=== PATIENT | female | born 1985 | race Caucasian/White ===

== ENCOUNTER 2019-01-06 10:23 | Emergency (ER) | payer SELFPAY ==
[2019-01-06 10:29] VITALS: BMI 36.6
[2019-01-06 10:33] VITALS: RESP 18
--- NOTE | 2019-01-06 12:12 | C.PDOC ---
History Of Present Illness 33-year-old female presents to the ED for evaluation of right shoulder pain radiating to the right upper arm and hand which gradually developed over the past few days. 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 She denies known trauma/injury to the area, chest pain, shortness of breath, and deformity or weakness to the right arm. Time Seen by Provider: 01/06/19 10:43 Chief Complaint (Nursing): Upper Extremity Problem/Injury History Per: Patient History/Exam Limitations: no limitations Onset/Duration Of Symptoms: Gradual, Other (few days ) Current Symptoms Are (Timing): Still Present Quality: "Pain" Additional History Per: Patient Past Medical History Reviewed: Historical Data, Nursing Documentation, Vital Signs Vital Signs: Last Vital Signs Temp 98.1 F 01/06/19 10:29 Pulse 95 H 01/06/19 10:29 Resp 18 01/06/19 10:29 BP 120/79 01/06/19 10:29 Pulse Ox 99 01/06/19 10:29 - Medical History PMH: No Chronic Diseases Surgical History: No Surg Hx Family History: States: Unknown Family Hx - Social History Hx Alcohol Use: No Hx Substance Use: No - Immunization History Hx Tetanus Toxoid Vaccination: No Hx Influenza Vaccination: No Hx Pneumococcal Vaccination: No Review Of Systems Constitutional: Negative for: Fever, Chills, Weakness Cardiovascular: Negative for: Chest Pain Respiratory: Negative for: Shortness of Breath Musculoskeletal: Positive for: Shoulder Pain (right ), Arm Pain (right, upper ), Hand Pain (right) Skin: Negative for: Rash, Lesions, Jaundice, Bruising Neurological: Negative for: Weakness, Numbness Physical Exam - Physical Exam Appears: Well, Non-toxic, No Acute Distress Skin: Normal Color, Warm, No Rash, No Ecchymosis Head: Atraumatic, Normacephalic Neck: Trachea Midline, No Midline Cervical Tenderness, No Step Off Deformity, Supple, Other (Diffuse right lateral neck tenderness overlying trapezium muscle with palpable muscle spasm.) Cardiovascular: Rhythm Regular, No Murmur, No JVD Respiratory: No Decreased Breath Sounds, No Accessory Muscle Use, No Stridor, No Wheezing Extremity: Normal ROM (Mild discomfort to Right shoulder extension/abduction due to pain, no neurovascular deficits), Tenderness (tenderness over Right superior shoulder extend to Right upper back with palpable muscle spasm. No palpable deformity.), No Deformity, No Swelling Neurological/Psych: Oriented x3, Normal Speech, Normal Motor, Normal Sensation, Normal Reflexes ED Course And Treatment O2 Sat by Pulse Oximetry: 99 (on RA) Pulse Ox Interpretation: Normal - Other Rad Right shoulder X-Ray: Interpreted by Me, Viewed By Me Interpretation: (-) acute fx or dislocation Progress Note: Right shoulder XR ordered. Tramadol PO and Prednisone PO given. On re-eval, pt is afebrile, hemodynamicay stable. Non-toxic. RUE: mild tenderness over superior aspect Right shoulder. Mild discomofrt to Right shoulder extension due to pain. NO neurovascular deficits, no deformity, no neurovascular deficits. Imaging review and appears normal. Pt has clinical findings c/w Right shoulder strain/ cervical radiculopathy. Pt advised. ref. to F/u with PMD in2 -3 days for re-eavl. return if any new changes Disposition Counseled Patient/Family Regarding: Studies Performed, Diagnosis, Need For Followup, Rx Given - Disposition Referrals: [facility] [Outside] Disposition: HOME/ ROUTINE Disposition Time: 11:35 Condition: STABLE Additional Instructions: Light duty to Right arm, avoid raising, heavy lifting for 1 week Take medication as prescribed Follow up with PMD in 2-3 days for re-evaluation return if any worsening or new changes. Prescriptions: Prednisone [Deltasone] 40 mg PO DAILY #6 tablet traMADol [Ultram] 50 mg PO BID #7 tab Instructions: Shoulder Sprain, Radiculopathy Forms: [facility] (Bel[place]ian), Work Excuse - Clinical Impression Clinical Impression: Cervical radiculopathy, Shoulder strain - PA / [employer] / Resident Statement MD/DO has reviewed & agrees with the documentation as recorded. - Scribe Statement The provider has reviewed the documentation as recorded by the Scribe (Yudelka Hernandez) All medical record entries made by the Scribe were at my direction and personally dictated by me. I have reviewed the chart and agree that the record accurately reflects my personal performance of the history, physical exam, medical decision making, and the department course for this patient. I have also personally directed, reviewed, and agree with the discharge instructions and disposition.
--- NOTE | 2019-01-06 12:28 | RAD ---
Date of service: 01/06/2019 PROCEDURE: Radiographs of the Left Shoulder HISTORY: Injury COMPARISON: No prior. TECHNIQUE: 3 views obtained. FINDINGS: BONES: Normal. No fracture. JOINTS: Normal. Glenohumeral and acromioclavicular joints preserved. No osteoarthritis. SOFT TISSUES: Normal. OTHER FINDINGS: None. IMPRESSION: Normal radiographs of the left shoulder.
[2019-01-06 12:39] VITALS: BP 138/80; PULSE 79; TEMP 98.2
[2019-01-06 20:43] VITALS: O2SAT 99
== END 2019-01-06 12:38 | disposition home or self-care (01) ==
LOC: C.ER 10:23
DX: S46.911A Strain of unspecified muscle, fascia and tendon at shoulder and upper arm level, right arm, initial encounter (principal); X58.XXXA Exposure to other specified factors, initial encounter; M54.12 Radiculopathy, cervical region